=== PATIENT | male | born 1995 | race Caucasian/White ===

== ENCOUNTER → 2019-06-05 | Outpatient (CLI) | payer BC ==
--- NOTE | 2019-06-05 17:01 | Diagnostic Imaging Report ---
INDICATION: Right ankle pain. AP, oblique, and lateral views of the right ankle are obtained. No fracture or acute bony abnormality is seen. There is soft tissue swelling. IMPRESSION: No acute fracture or acute bony abnormality. Soft tissue swelling is noted. Dictated by: Dictated on workstation # [id number]
== END ==
LOC: RAD 16:37
PROVIDERS: ATTEND Internal Medicine
DX: S93.401A Sprain of unspecified ligament of right ankle, initial encounter (principal); X58.XXXA Exposure to other specified factors, initial encounter
CPT/HCPCS: 73610

== ENCOUNTER → 2019-06-26 | Outpatient (CLI) | payer BC ==
--- NOTE | 2019-06-26 14:46 | Diagnostic Imaging Report ---
INDICATION: Right foot at 2:19 p.m. INDICATION: Foot pain 3 views were obtained. COMPARISON: There are no prior studies for comparison. FINDINGS: On the oblique view, there is a suggestion of a small avulsion fracture along the medial aspect of the articulation of the 3rd cuneiform and the base of the 3rd metatarsal. This finding is not well appreciated on the other 2 projections but I am concerned that there is a fracture in this area. I would recommend that a CT of the foot be obtained for a more sensitive evaluation of this suspected injury. No other fracture is identified. The Lisfranc joint does not seem to be disturbed but the Lisfranc joint is not particularly well visualized. The soft tissues are unremarkable. IMPRESSION: 1. The findings do suggest a small avulsion fracture along the medial aspect of the articulation of the 3rd cuneiform and the base of the 3rd metatarsal. CT would be recommended for further study. 2. There is no other acute bony abnormality noted. 3. These results were discussed with Dr. Adame. Dictated by: Dictated on workstation # [id number]
--- NOTE | 2019-06-26 15:07 | Diagnostic Imaging Report ---
EXAMINATION: Right ankle radiographs, 3 views. COMPARISON: Right ankle radiographs June 05, 2019. HISTORY: 24-year-old male, injury 2 weeks ago playing basketball. FINDINGS: There is subtle increased attenuation adjacent to the dorsal aspect of the navicular and near the dorsal aspect of the talonavicular articulation with similar appearance to June 05, 2019. There is no clearly identified donor fracture site. There is no additional identified potential acute fracture. The alignment of the ankle mortise is unremarkable. There is no large tibiotalar joint effusion. IMPRESSION: 1. Subtle areas of increased attenuation adjacent to the dorsal aspect of the navicular in the region of the talonavicular articulation. This is of uncertain exact age. This potentially could relate to sequela of injury and potentially a minimal avulsion type injury. 2. No otherwise identified potential acute bony abnormality. Dictated by: Dictated on workstation # [id number]
== END ==
LOC: RAD 13:57
PROVIDERS: ATTEND Internal Medicine
DX: S93.401A Sprain of unspecified ligament of right ankle, initial encounter (principal); M79.671 Pain in right foot; X58.XXXA Exposure to other specified factors, initial encounter
CPT/HCPCS: 73610; 73630

== ENCOUNTER → 2019-07-02 | Outpatient (CLI) | payer BC ==
--- NOTE | 2019-07-03 14:42 | Diagnostic Imaging Report ---
PROCEDURE: CT right ankle and foot without contrast. TECHNIQUE: Axially acquired CT was obtained through the right ankle and foot without intravenous contrast. Coronal and sagittal reformations were also performed. Auto Exposure Controls were utilized during the CT exam to meet ALARA standards for radiation dose reduction. DATE: July 02, 2019. INDICATION: 24-year-old male, right foot and ankle pain after injury. COMPARISON: Radiographs June 26, 2019. FINDINGS: There are ill-defined areas of ossification along the dorsal aspect of the navicular with somewhat of an elongated proximal to distal extent. There is no clear donor fracture site from the navicular. The dorsal cortex of the navicular is minimally irregular. There is no aggressive bone destruction. There is no adjacent soft tissue swelling. There is no identified other potentially acute osseous abnormality. There is no subluxation or dislocation. There is no tibiotalar or subtalar joint effusion. There is preservation of normal fat signal in the sinus tarsi. The joint spaces are well preserved. IMPRESSION: 1. Elongated areas of ossification adjacent to the dorsal aspect of the navicular without a definite fracture line or donor fracture site from the navicular. Differential diagnostic considerations would include a chronic stress related changes relating to dorsal ligamentous/capsular attachments or productive bone formation in response to a subtle avulsion related injury. 2. No otherwise identified potential acute bony abnormality. Dictated by: Dictated on workstation # [id number]
== END ==
LOC: RAD 16:34
PROVIDERS: ATTEND Internal Medicine
DX: S99.921A Unspecified injury of right foot, initial encounter (principal)
CPT/HCPCS: 73700

== ENCOUNTER → 2020-01-15 | Outpatient (CLI) | payer BC ==
--- NOTE | 2020-01-15 16:08 | Diagnostic Imaging Report ---
MRI RT LOWER EXT JOINT W/O TECHNIQUE: Multiplanar, multisequence MR imaging of the right knee was performed without contrast. COMPARISON: Right knee MRI from 01/12/2014. INDICATION: Knee pain. FINDINGS: MENISCI Medial meniscus: Normal. Lateral meniscus: Heterogeneous signal and ill-defined margins of the anterior horn of the lateral meniscus suggests some complex tearing. No parameniscal cyst. LIGAMENTS ACL: Prior repair of ACL tibial footprint avulsion has solid osseous healing of the previously avulsed fracture fragment. ACL bundles remain intact and there are no features of sprain. PCL: Intact. MCL: Intact. LCL: The lateral collateral ligamentous complex is intact. EXTENSOR MECHANISM The extensor mechanism is intact. CARTILAGE Medial compartment: Medial compartment articular cartilage is well preserved without focal high-grade chondromalacia. Lateral compartment: In the central weightbearing aspect of the lateral compartment there is a region of partial-thickness chondral loss measuring approximately 8 x 10 mm but this does not appear full-thickness and there is no underlying subchondral bone marrow edema. Patellofemoral compartment: The patellofemoral articular cartilage is well preserved without high-grade chondromalacia. BONE There is a small amount of ill-defined bone marrow edema in the subcortical region of the medial femoral condyle but no overlying articular cartilage abnormality or macroscopic fracture line. No osteonecrosis or osteochondral lesion. SOFT TISSUE Moderate-sized knee joint effusion. No Armas's cyst. IMPRESSION: 1. Prior repair of ACL osseous avulsion has solid fusion/healing of the tibial footprint. No recurrent ACL tear. 2. Complex macerated-type tearing in the anterior horn of the lateral meniscus. 3. Small region of partial-thickness articular cartilage loss and thinning in the central weightbearing aspect of the lateral compartment. 4. Moderate-sized knee joint effusion. Dictated by: Dictated on workstation # [id number]
== END ==
LOC: RAD 12:50
PROVIDERS: ATTEND Nurse Practitioner
DX: S83.271A Complex tear of lateral meniscus, current injury, right knee, initial encounter (principal); S83.511D Sprain of anterior cruciate ligament of right knee, subsequent encounter
CPT/HCPCS: 73721